=== PATIENT | female | born 1945 | race African-American/Black ===

== ENCOUNTER 2017-05-04 18:57 | Emergency (ER) | payer MEDICARE ==
[~2017-05-04] VITALS: Ht 165.1 cm; Wt 91.8 kg
[~2017-05-04 18:57] MED LIST: CELEBREX100 MG OR; HYDROCHLOROT25 MG OR; HYDROCHLOROT25 MG PO
[2017-05-04 20:22] LABS: HEMOGLOBIN 11.6 g/dl (12.0-16.0); IMMATURE GRANULOCYTES 0.2 % (0.0-1.0); MEAN CELL VOLUME 87.2 fL CALC (80.0-100.0); MEAN CORPUSCULAR HGB 28.1 pG CALC (26.0-32.0); MEAN CORPUSCULAR HGB CONC 32.2 g/L CALC (32.0-36.0); NEUT# 6.38 thou/uL (2.00-7.15); RED BLOOD COUNT 4.13 mill/uL (4.20-5.60); RED CELL DISTRI WIDTH 12.5 % (11.5-15.5)
[2017-05-04 20:37] LABS: ALBUMIN 4.2 g/dL (3.2-5.0); CALCIUM 9.5 mg/dL (8.4-10.2); CREATININE 1.1 mg/dL (0.5-1.0); POTASSIUM 3.5 mmol/l (3.5-5.1); TOTAL PROTEIN 7.7 g/dL (6.3-8.2)
[2017-05-04] MEDS ORDERED: NORCO1 TA1 PO (23:03)
[2017-05-04 23:06] LABS: URINE BILIRUBIN - DIPSTICK NEGATIVE (NEGATIVE); URINE BLOOD DIPSTICK NEGATIVE (NEGATIVE); URINE COLOR YELLOW; URINE GLUCOSE - DIPSTICK NEGATIVE (NEGATIVE); URINE KETONE NEGATIVE (NEGATIVE); URINE LEUK ESTERASE NEGATIVE (NEGATIVE); URINE NITRITE - DIPSTICK NEGATIVE (Negative); URINE PROTEIN - DIPSTICK NEGATIVE (NEG-TRACE); URINE SPECIFIC GRAVITY <=1.005; URINE UROBILINOGEN - DIPSTICK 0.2 E.U./dL (0.2)
[2017-05-04 23:13] LABS: URINE CLARITY CLEAR
[2017-05-04 23:25] VITALS: BP 155/71
== END 2017-05-04 23:25 | disposition home or self-care (01) ==
LOC: ED 18:57
PROVIDERS: Emergency Medicine
DX: S86.911A Strain of unspecified muscle(s) and tendon(s) at lower leg level, right leg, initial encounter (principal); Y93.01 Activity, walking, marching and hiking; Y92.59 Other trade areas as the place of occurrence of the external cause

== ENCOUNTER 2019-01-24 11:43 | Emergency (ER) | payer MEDICARE ==
[~2019-01-24] VITALS: Ht 165.1 cm; Wt 100.0 kg
[~2019-01-24 11:43] MED LIST changes: +NORCO1 TA1 PO
[2019-01-24 11:50] VITALS: BP 183/85
== END 2019-01-24 12:05 | disposition home or self-care (01) ==
LOC: ED 11:43
DX: Z03.89 Encounter for observation for other suspected diseases and conditions ruled out (principal)

== ENCOUNTER 2024-05-30 10:36 | Emergency (ER) | payer MEDICARE ==
[~2024-05-30] VITALS: Ht 167.6 cm; Wt 92.9 kg
[2024-05-30 10:43] VITALS: BP 158/79
[2024-05-30 10:46] VITALS: BP 156/64
[2024-05-30] MEDS ORDERED: traMADol HCL 50 MG/TAB PO ONE (11:00)
[2024-05-30] MEDS ORDERED: IBUPROFEN 800 MG/TAB PO ONE (11:00)
[2024-05-30] MEDS ORDERED: NABUMETONE750 MG PO (11:33)
[2024-05-30] MEDS ORDERED: TRAMADOL HYDROC50 M1 PO (11:33)
[2024-05-30 12:01] VITALS: BP 156/64
== END 2024-05-30 12:02 | disposition home or self-care (01) ==
LOC: ED 10:36
DX: M25.571 Pain in right ankle and joints of right foot (principal); I10 Essential (primary) hypertension